=== PATIENT | female | born 1950 | race Caucasian/White ===

== ENCOUNTER 2024-01-08 10:39 | Outpatient (CLI) | payer OTHER, SELFPAY ==
--- NOTE | 2024-01-08 11:00 | US_ITS ---
Patient: PASTOR WYATT Facility:?[facility] Patient ID:?[id number] Site Patient ID:?[id number]. Site :?[id number] Study:?US-Abdomen Bilateral RENAL-01/08/2024 11:25:39 AM Ordering Physician:?ALPESH ZAVALA Final Report: CLINICAL HISTORY: CKD STAGE 3 COMPARISON: none TECHNIQUE: Lane scale and color Doppler images were acquired of the kidneys and urinary bladder. FINDINGS: Simple cysts right kidney measures 1.8 x 2.0 x 1.9 cm. Simple cyst left kidney measures 1.8 x 1.5 x 1.8 cm. There is no evidence of hydronephrosis, solid mass or calculus. The right kidney measures 11.5cm in length and the left kidney measures 11.1cm in length. The renal cortex measures 1.2 cm on the right and 1.5 cm on the left. The urinary bladder appears normal. Color Doppler images reveal a normal appearance of both ureteral jets. There is no evidence of bladder calculi or diverticula. Gallstones in the gallbladder noted. IMPRESSION: Simple renal cysts. No hydronephrosis. Cholelithiasis. Dictated by Lincoln Buckley MD @ 01/08/2024 11:43:30 AM Signed by:?Lincoln Buckley MD @01/08/2024 11:43:30 AM (Electronic Signature)
== END 2024-01-08 10:40 | disposition home or self-care (01) ==
LOC: US 10:40
PROVIDERS: PCP Internal Medicine Nephrology; Visit Provider Internal Medicine Nephrology
DX: N18.32 Chronic kidney disease, stage 3b (principal); N28.1 Cyst of kidney, acquired; K80.20 Calculus of gallbladder without cholecystitis without obstruction
CPT/HCPCS: 76775

== ENCOUNTER 2024-06-03 15:00 | Outpatient (CLI) | payer OTHER, SELFPAY ==
--- OUTSIDE RECORDS SUMMARY | 2024-06-11 10:24 | XMS_ITS | Clinical Summary ---
Author Organization [facility] Address [address] [place] [address] Care Team Providers Care Branch Store Manager Name Role Phone Unavailable Primary Care Provider Unavailabl e Source Comments Patient records contain information from all sites at [facility]. For routine questions regarding patient records, call [phone] during business hours, M-F 8:00 AM - 5:00 PM Central Time. Record requests for emergency care only can be directed to [phone] at any time.[facility] Encounters Date Type Department Care Team Description 06/10/2024 10:30 AM CDT External Outreach Division of Nephrology and Hypertension in [place], [place] [address] [place] [address] Gauri Mckeon M.D., Ph.D. Chronic Kidney Disease (CKD), Stage 3b Glomerular Filtration Rate (GFR) 30 To 44 (HCC) (Primary Dx); Hypertension Essential Primary from Last 3 Months Social History Tobacco Use Types Packs/Day Years Used Date Smoking Tobacco: Never Assessed Nutrition Answer Date Recorded Nutrition: EVOO Fat Source Unknown 12/04 Nutrition: Servings of Fruits/Vegetables per Day Not on file 12/04/2023 Dental Answer Date Recorded Dental: Regular Dentist Unknown 12/04/19 24 Sex and Gender Information Value Date Recorded Sex Assigned at Not on file Gender Identity Not on file Sexual Orientation Not on file Plan of Treatment Health Maintenance Due Date Last Done Comments Bone Density Scan (Osteoporo sis Screen) 1948 CT Colonography 1950 Cologuard 1950 Colonoscopy 1950 Colorectal Cancer Screening 1950 FIT 1950 Hepatitis C Screening 1950 Zoster Vaccines (2 of 3) 10/28/2014 09/02/2014 COVID-19 Vaccine (2022-2 4 season) 2023 Depression Screening (Annual PHQ-2) 10/27/2023 Fall Risk Screen (Annual) 10/27/2023 Influenza Vaccine (#1) 2024 , 09/01/2017, 08/01/2015, Additional history exists Mammogram 11/03/2024 11/03/2023, 11/03/2023 Fasting Glucose for Diabetes Screening 03/23/2027 03/23/2024, 12/04/2023, 10/22/2023, Additional history exists DTaP,Tdap,and Td Vaccines (3 - Td or Tdap) 12/05/2033 12/05/2023, 12/27/2010, 12/13/2004 Pneumococcal vaccine (65+ years) Completed 01/09/20, 03/09/[address] [address]
--- OUTSIDE RECORDS SUMMARY | 2024-06-11 10:24 | XMS_ITS | Clinical Summary ---
Author Organization [email or web address] Address [place], [place] [address] Care Team Providers Care Sub Master Name Role Phone Staff, Other Clinical Unavailable Lakshmi Ramos MD Primary Care Provider [phone] Allergies Active Allergy Reactions Criticality Noted Date Comments Clindamycin GI Upset 05/06/2023 Valsartan Hives 05/06/2023 Medications Medication Sig Dispensed Refills Start Date End Date Status potassium chloride (Klor-Con 10) 10 mEq extended-release tabletIndications:Hy pokalemia Take 1 Tablet (10 mEq) by mouth once daily with a meal. 90 Tablet 3 05/20/2023 Active blood sugar diagnostic (True Metrix Glucose Test Strip) stripIndications:Typ e II diabetes mellitus with hyperosmolarity, uncontrolled (HC) Dispense item covered by pt ins. E11.65 NIDDM type II, uncontrolled - Test 3 times/day, Reason: High A1C 200 Each 3 05/20/2023 Active rosuvastatin (CRESTOR) 5 mg tabletIndications:Hy perlipidemia, unspecified hyperlipidemia type Take 1 Tablet (5 mg) by mouth at bedtime. 90 Tablet 2 10/07/2023 Active cholecalciferol (Vitamin D-3) 2,000 unit capsule Take 2,000 units by mouth once daily. Active cyanocobalamin (Vitamin B-12) 1,000 mcg tablet Take 1,000 mcg by mouth once daily. Active Eliquis 5 mg tabletIndications:Pa roxysmal atrial fibrillation (HC) TAKE 1 TABLET BY MOUTH TWICE A DAY 180 Tablet 01/08/2024 Active metFORMIN (GLUCOPHAGE XR) 500 mg Extended-Release tabletIndications:Ty pe II diabetes mellitus with hyperosmolarity, uncontrolled (HC) Take 2 Tablets (1,000 mg) by mouth once daily with evening meal. 180 Tablet 1 02/13/2024 Active lisinopriL (PRINIVIL; ZESTRIL) 10 mg tabletIndications:HT N (hypertension) TAKE 1 TABLET BY MOUTH EVERY DAY 90 Tablet 1 03/01/2024 Active glipiZIDE extended-release (GLUCOTROL XL) 10 mg Extended-Release tabletIndications:Ty pe II diabetes mellitus with hyperosmolarity, uncontrolled (HC) Take 1 Tablet (10 mg) by mouth two times daily before meals. 180 Tablet 03/24/2024 Active amLODIPine (NORVASC) 10 mg tabletIndications:HT N (hypertension) Take 1 Tablet (10 mg) by mouth once daily. 90 Tablet 1 03/26/2024 Active atenoloL (TENORMIN) 25 mg tabletIndications:HT N (hypertension) Take 1.5 Tablets (37.5 mg) by mouth two times daily. 270 Tablet 1 03/29/2024 Active empagliflozin (Jardiance) 25 mg tabletIndications:Ty pe II diabetes mellitus with hyperosmolarity, uncontrolled (HC) TAKE 1 TABLET BY MOUTH EVERY DAY 90 Tablet 04/09/2024 Active levothyroxine (SYNTHROID) 75 mcg tabletIndications:Hy pothyroidism, unspecified type Take 1 Tablet (75 mcg) by mouth before breakfast. 90 Tablet 1 05/11/2024 Active Active Problems Problem Noted Date Diagnosed Date Type II diabetes mellitus wi th hyperosmolarity, uncontrolled 05/15/2023 Chronic kidney disease, stage 3a 05/15/2023 HTN (hypertension) 05/15/2023 Iron deficiency anemia 05/15/2023 Hypothyroidism 05/15/2023 Paroxysmal atrial fibrillation 05/15/2023 Gout 05/15/2023 Vitamin B12 deficiency 05/15/2023 Osteopenia 05/15/2023 Hypokalemia 05/15/2023 Hyperlipidemia 05/15/2023 Encounters Date Type Department Care Team Description 05/09/2024 [place] [facility] [address] [place], [place] [id number] Lakshmi Ventura MD Refill Request (Levothyroxine) 04/28/2024 Orders Only [facility] Scanner 1 scan: (1-Ord) [facility], 04/28/2024 04/07/2024 [place] [facility] [address] [place] [address] Lakshmi Ventura MD Refill Request (Jardiance, Glipizide Extended-release) 03/29/2024 Telephone [facility] [address] [place] [address] Lakshmi Ventura MD Medication Management (atenoloL (TENORMIN) 25 mg tablet/) 03/26/2024 Telephone [facility] [place] [phone] [place] [address] Lakshmi Ventura MD Refill Request (Amlodipine) 03/24/2024 Telephone [facility] [id number] [place] [address] Lakshmi Ventura MD Results 03/23/2024 11:30 AM CDT Office [place] [facility] [id number] [place] [address] Lakshmi Ventura MD Diabetes 03/23/2024 7:20 AM CDT Orders Only [facility] [place] [address] [place] [address] Lab 03/23/2024 Travel 03/23/2024 Refill [facility] [address] [place] [address] Lakshmi Ventura MD Refill Request (Amlodipine, Atenolol) from Last 3 Months Immunizations Name Administration Dates Next Due Influenza Virus, Unspecified 08/18/2009 Influenza, High-dose Inactivated 09/01/2017,1003/2015 Influenza, IIV3 (Age 6-35 mos) 08/30/2013,2011 Influenza, IIV3 (Age >=3 years) 09/27/2008,09/16,08/09/2004 Influenza, Inactivated AIIV4 (Age 65+ Years) Preserv Free 09/01/2023 Pneumococcal Poly,23-Valent (Pneumovax) 03/09/20 14 Pneumococcal conj 13-Valent (Prevnar 13) 017 Td (Age >=7 Years) 12/13/2004 Tdap 12/05/2023,12/27/2010 Zoster (Zostavax-ZVL, live) 09/02/2014 Family History Medical History Relation Name Comments Cancer-breast Sister x2 Relation Name Status Comments Sister Social History Tobacco Use Types Packs/Day Years Used Date Smoking Tobacco: Never Smokeless Tobacco: Never Tobacco Cessation:Counseling Given: Not Answered Alcohol Use Standard Drinks/Week Comments Not Currently 0 (1 standard drink = 0.6 oz pur e alcohol) PHQ-2 Answer Date Recorded PHQ-2 TOTAL SCORE 0 12/04/2023 Social Connections Answer Date Recorded Frequency of Communication with Friends and Fami ly 0 07/07/2023 Financial Resource Strain Answer Date R ecorded Difficulty of Paying Living Expenses 3 07/07/2023 Difficulty of Paying Living Expenses Not on file 07/07/2023 Food Insecurity Answer Date Recorded Worried About Running Out of Food in the Last Ye ar 1 07/07/2023 Transportation Needs Answer Date Record ed Lack of Transportation (Medical) 1 07/07/2023 Housing Stability Answer Date Recorded Unable to Pay for Housing in the Last Year 1 07/07/2023 Sex and Gender Information Value Date Recorded Sex Assigned at Not on file Gender Identity Not on file Sexual Orientation Not on file Obstetrics History Last Filed Vital Signs Vital Sign Reading Time Taken Comments Blood Pressure 126/81 03/23/2024 11:40 AM CDT Pulse 94 03/23/2024 11:40 AM CDT Temperature - - Respiratory Rate 14 03/23/2024 11:40 AM CDT Oxygen Saturation 97% 03/23/2024 11:40 AM CDT Inhaled Oxygen Concentration - - Weight 75.8 kg (167 lb) 03/23/2024 11:40 AM CDT Height 157.5 cm (5' 2) 03/23/2024 11:40 AM CDT Body Mass Index 30.54 03/23/2024 11:40 AM CDT Plan of Treatment Upcoming Encounters Date Type Department Care Team (Late st Contact Info) Description 06/24/2024 11:30 AM CDT [place] [facility] [address] [place] [address] [place] [address] [place], [place] [id number] Health Maintenance Due Date Last Done Comments Zoster (shingles) series for age 50+ (2 of 3) 10/28/2014 09/02/2014 Colonoscopy through age 75 03/20/201503/20 (Completed outside of [facility]) Influenza for age 65+ 06/27/2024 09/01/2023 , 09/01/2017, 08/01/2015, Additional history exists COVID-19 vaccine series (2022- season) 2024 Postponed from 06/27/2023 (Patient discretion) Depression screening for age 12+ 12/04/2024 12/04/2023, 12/04/2023, 12/04/2023, Additional history exists Medicare Wellness for age 65+ 12/04/2024 12/04/2023, 02/25/2023 (Completed outside of [facility]) BMI (ht and wt on same day) for age 18+ 03/23/2025 03/23/2024, 02/19/2024, 12/22/2023, Additional history exists Lipids for age 45-75 12/04/2028 12/04/2023, 02/26/2023 (Verified in Care Everywhere or Patient Record) Tetanus booster 12/05/2033 12/05/2023, 03/0 12/2010, 12/13/2004 Pneumococcal series for age 65+ Completed 01/08/2017, 03/09/2014 DEXA/DXA scan for age 65+ Addressed 2021 (Verified in Care Everywhere or Patient Record) Overridden with the intention of not completing the topic Hepatitis C screening for age 18-79 Completed 12/04/2023 Tdap Completed 12/05/2023, 12/27/2010 Fecal testing non-DNA (FIT,FOBT,iFOBT) for age 45-75 Discontinued 03/23/2024, 02/24/2023 (Verified in Care Everywhere or Patient Record) Procedures Procedure Name Priority Date/Time Associated Diagnosis Comments SCAN-EYE EXAM 04/28/2024 12:00 AM CDT OCCULT BLOOD IFOBT STOOL Routine 03/23/2024 2:37 PM CDT Screening for colon cancer HEMOGLOBIN A1C Routine 03/23/2024 12:00 PM CDT Type II diabetes mellitus with hyperosmolarity, uncontrolled (HC) BASIC METABOLIC PANEL Routine 03/23/2024 12:00 PM CDT Chronic kidney disease, stage 3a (HC) Hypertension, unspecified type ANTI HCV Routine 12/04/2023 1:46 PM STAFFING CONSULTANT Need for hepatitis C screening test LIPID PANEL Routine 12/04/2023 1:46 PM STAFFING CONSULTANT Hyperlipidemia, unspecified hyperlipidemia type from Last 3 Months or Most Recently Relevant to Health Maintenance Results * SCAN-EYE EXAM (04/28/2024 12:00 AM CDT) Scanner OTHER * OCCULT BLOOD IFOBT STOOL (03/23/2024 2:37 PM CDT) STOOL BLOOD ,IFOBT Negative Negative 03/31/2024 12:53 PM CDT [facility] [place] [place] Stool STOOL SPECIMEN / Unknown Non-Blood / Unknown 03/23/2024 2:37 PM CDT 03/30/2024 2:37 PM CDT Lakshmi Ventura MD LABORATORY [facility] [place] [place] [address] [place] [address], * (ABNORMAL) HEMOGLOBIN A1C MONITORING (POCT) (03/23/2024 12:00 PM CDT) HEMOGLOBIN A1C MONITORING (POCT) 8.3(H) <=6.4 % 03/23/2024 12:27 PM CDT [facility] [place] BLOOD SPECIMEN / Unknown Venipuncture / Unknown 03/23/2024 12:00 PM CDT 03/23/2024 12:00 PM CDT Narrative [facility] [place] 03/23/2024 12:27 PM CDT ? (<=6.9%) ? Indicates good control ? (7.0% to 7.9%) ? Indicates fair control ? (>=8.0%) ? Indicates poor control ?? NOTE: ??These thresholds are guidelines and ?individual targets may vary. Falsely low levels may be seen with: Recent Transfusion, Recent Significant Blood Loss, Hemolytic Diseases, or Falsely elevated levels may be seen with: Untreated Anemias, Splenectomy ? Lakshmi Ventura MD CHEMISTRY [facility] [place] [address] [place] [address], * (ABNORMAL) BASIC METABOLIC PANEL (03/23/2024 12:00 PM CDT) SODIUM 139 136 - 145 mmol/L 03/24/2024 4:12 AM CDT [facility] POTASSIUM 4.7 3.5 - 5.1 mmol/L 03/24/2024 4:12 AM CDT [facility] CHLORIDE 102 98 - 107 mmol/L 03/24/2024 4:12 AM CDT [facility] CO2,TOTAL 25 22 - 29 mmol/L 03/24/2024 4:12 AM T [facility] ANION GAP 12 5 - 18 03/24/2024 4:12 AM T [facility] GLUCOSE 282(H) 70 - 99 mg/dL 03/24/2024 4:12 AM T [facility] CALCIUM 9.5 8.8 - 10.2 mg/dL 03/24/2024 4:12 AM CDT [facility] BUN 25(H) 8 - 23 mg/dL 03/24/2024 4:12 AM CDT [facility] CREATININE 1.21(H) 0.50 - 0.90 mg/dL 03/24/2024 4:12 AM T [facility] BUN/CREAT RATIO 21(H) 10 - 20 4:12 AM T [facility] eGFR 47(L) >90 mL/min/1.7 3m2 03/24/2024 4:12 AM T [facility] Comment:As of 2022, eG FR is calculated by the CKD-EPI creatinine equation without race adjustment. ??eGFR can be influenced by muscle mass, exercise, and diet. ??The reported eGFR is an estimation only and is only applicable if the renal function is stable. Blood BLOOD SPECIMEN / Unknown Venipuncture / Unknown 03/23/2024 12:00 PM CDT 03/23/2024 12:00 PM CDT Lakshmi Ventura MD CHEMISTRY Performing Organization Address City/State/[facility] Co de Phone Number [facility] [address] [place] [address], * ANTI HCV (12/04/2023 1:46 PM STAFFING CONSULTANT) HEPATITIS C ANTIBODY Non-Reacti ve Non-React tara 12/04/2023 9:25 PM STAFFING CONSULTANT [facility] Comment:Please note, per www .CDC.gov: If a patient is known to be at high risk of HCV infection, or is symptomatic, and the physician's suspicion of HCV infection is high, HCV RNA testing is often employed and is of diagnostic value, even after an initial negative anti-HCV test result. Blood BLOOD SPECIMEN / Unknown Venipuncture / Unknown 12/04/2023 1:46 PM STAFFING CONSULTANT 12/04/2023 1:46 PM STAFFING CONSULTANT Lakshmi Ventura MD SEND OUTS [email or web address] [address] [place] [address], [place] * (ABNORMAL) LIPID PANEL (12/04/2023 1:46 PM STAFFING CONSULTANT) CHOLESTEROL,TOTAL 154 100 - 199 mg/dL 12/04/2023 9:59 PM STAFFING CONSULTANT [facility] Comment: Cholesterol, Total Reference Ranges Desirable <200 mg/dL Borderline 200-239 mg/dL High >=240 mg/dL TRIGLYCERIDES 158(H) <150 mg/dL 12/04/2023 9:59 PM STAFFING CONSULTANT [facility] HDL CHOLESTEROL 65 >40 mg/dL 9:59 PM STAFFING CONSULTANT [facility] NON-HDL CHOLESTEROL 89 <145 mg/dl 12/04/2023 9:59 PM STAFFING CONSULTANT [facility] CHOL/HDL RATIO 2.37 <4.50 12/04/2023 9:59 PM STAFFING CONSULTANT [facility] LDL CHOLESTEROL 57 <=130 mg/dL 12/04/2023 9:59 PM STAFFING CONSULTANT [facility] VLDL CHOLESTEROL 32(H) <=30 mg/dL 12/04/2023 9:59 PM STAFFING CONSULTANT [facility] PROVIDER ORDERED STATUS RANDOM 12/04/2023 9:59 PM STAFFING CONSULTANT [facility] Blood BLOOD SPECIMEN / Unknown Venipuncture / Unknown 12/04/2023 1:46 PM STAFFING CONSULTANT 12/04/2023 1:46 PM STAFFING CONSULTANT Lakshmi Ventura MD CHEMISTRY [email or web address] [address] [place] [address], [place] from Last 3 Months or Most Recently Relevant to Health Maintenance Care Teams Sub Master Relationship Specialty Start [place] [address] [place] [address] PCP - General Internal Medicine 12/04/23 Staff, Other Clinical . 07/14/23
--- OUTSIDE RECORDS SUMMARY | 2024-06-11 10:24 | XMS_ITS | Referral Summary ---
Author Organization [facility] Address [address] [place] [address] Care Team Providers Care Career Services Representative Name Role Phone Unavailable Primary Care Provider Unavailabl e Source Comments Patient records contain information from all sites at [facility]. For routine questions regarding patient records, call [phone] during business hours, M-F 8:00 AM - 5:00 PM Central Time. Record requests for emergency care only can be directed to [phone] at any time.[facility] Encounters Date Type Department Care Team Description 06/10/2024 10:30 AM CDT External Outreach Division of Nephrology and Hypertension in [place], [place] [address] [place] [address] Gauri Mckeon M.D., Ph.D. Chronic Kidney Disease [...] Orientation Not on file Plan of Treatment Not on file [address] [address]
--- OUTSIDE RECORDS SUMMARY | 2024-06-11 10:24 | XMS_ITS | Encounter Summary ---
Author Organization [facility] Address [address] [place] [address] Care Team Providers Care Aerial Advertiser Name Role Phone Unavailable Primary Care Provider Unavailabl e Reason for Visit * Appointment Request (Routine) - Closed Specialty Diagnoses / Procedures Referred By Controsemary t Referred To Contact Nephrology and Hypertension Referral ID Status Reason Start Date Expiration Date Visits Re quested Visits Authorized [id number] Closed 05/07/2024 05/07/2025 1 1 Encounter Details Date Type Department Care Team (Latest Contact Info) Description 06/10/2024 10:30 AM CDT External Outreach Division of Nephrology and Hypertension in [place], [place] [address] [place] [address] Gauri Mckeon M.D., Ph.D. [address] [place] [address] Chronic Kidney Disease (CKD), Stage 3b Glomerular Filtration Rate (GFR) 30 To 44 (HCC) (Primary Dx); Hypertension Essential Primary Social History Tobacco Use Types Packs/Day Years Used Date Smoking Tobacco: Never Assessed Nutrition Answer Date Recorded Nutrition: EVOO Fat Source Unknown 12/04 Nutrition: Servings of Fruits/Vegetables per Day Not on file 12/04/2023 Dental Answer Date Recorded Dental: Regular Dentist Unknown 12/04/19 Sex and Gender Information Value Date Recorded Sex Assigned at Not on file Gender Identity Not on file Sexual Orientation Not on file documented as of this encounter Progress Notes * Gauri Mckeon M.D., Ph.D. - 06/10/2024 10:30 AM CDT PROGRESS NOTE SUBJECTIVE CHIEF COMPLAINT / REASON FOR VISIT Follow up CKD 3A [facility] Outreach Visit Location: [facility] HISTORY OF PRESENT ILLNESS Camila Shine is a 73 y.o. female who is seen in clinic for follow up. She has longstanding history of type 2 DM and HTN. Mild proteinuria with ACR of 50. BP is at goal. She does not use NSAIDs. She follows a low salt diet. OBJECTIVE BP 120/68 Pulse 105 PHYSICAL EXAMINATION Constitutional Appearance: Normal appearance. HENT Head: Normocephalic. Cardiovascular Rate and Rhythm: Normal rate and regular rhythm. Pulmonary Effort: Pulmonary effort is normal. Breath sounds: Normal breath sounds. Musculoskeletal General: Normal range of motion. Skin General: Skin is warm. Neurological General: No focal deficit present. Mental Status: She is alert. DIAGNOSTICS I have reviewed available labs in detail with patient. ASSESSMENT / PLAN #1 Chronic Kidney Disease (CKD), Stage 3B Glomerular Filtration Rate (GFR) 30 To 44 (HCC) #2 Hypertension Essential Primary Patient returns for follow up. Kidney function remains stable. Estimated GFR is 52, unchanged from 6 months ago. Mild proteinuria. No hematuria. No anemia, no metabolic acid-base disorder. No mineral bone disease. We have extensively discussed about the stages of CKD and patient's current status. CKD likely related to T2DM and HTN We discussed about the importance of controlling protein concentration in urine by lowering the salt intake, controlling blood pressure, keeping a healthy weight. Patient will prefer to follow up with her PCP as her function is unchanged, she may be referred back as needed. Leidy Cruz M.D., Ph.D. documented in this encounter Plan of Treatment Not on file documented as of this encounter Visit Diagnoses Diagnosis Chronic Kidney Disease (CKD), Stage 3b Glomerular Filtration Rate (GFR) 30 To 44 (HCC)- Primary Hypertension Essential Primary documented in this encounter
--- OUTSIDE RECORDS SUMMARY | 2024-06-11 10:24 | XMS_ITS ---
Author Organization [facility] Address [address] [place] [address] Care Team Providers Care Director Instructional Material Name Role Phone Unavailable Unavailable Unavailable Surgery Details Not on file Complications Check Surgery Details section. Procedure Estimated Blood Loss Check Surgery Details section. Procedure Findings Check Surgery Details section. Procedure Specimens Taken Check Surgery Details section.
== END 2024-06-03 15:01 | disposition home or self-care (01) ==
PROVIDERS: Referring Provider Internal Medicine Nephrology; Visit Provider Internal Medicine Nephrology
DX: N18.32 Chronic kidney disease, stage 3b (principal)
CPT/HCPCS: 80069; 82043; 82570